=== PATIENT | male | born 1970 | race Caucasian/White ===

== ENCOUNTER → 2017-11-10 | Outpatient (CLI) | payer OTHER ==
[2017-11-10 09:32] LABS: Basophils % (A) 0 %; Eosinophils # (A) 0.1 k/uL (0-0.7); Eosinophils % (A) 1 %; HCT 43.4 % (39.0-53.0); HGB 14.8 gm/dL (13.0-17.5); Lymphocytes # (A) 1.2 k/uL (1.0-4.8); Lymphocytes % (A) 18 %; MCH 31.6 pg (25.0-35.0); MCHC 34.1 g/dL (31.0-37.0); MCV 92.7 fL (80.0-100.0); Mean Platelet Volume 6.8; Monocytes # (A) 0.5 k/uL (0-1.0); Monocytes % (A) 7 %; Neutrophils # (A) 4.5 k/uL (1.3-7.7); Neutrophils % (A) 71 %; Platelet Count 197 k/uL (150-450); RBC 4.68 m/uL (4.30-5.90); RDW 13.7 % (11.5-15.5); WBC 6.4 k/uL (3.8-10.6)
[2017-11-10 09:54] LABS: Anion Gap 9 mmol/L; Blood Urea Nitrogen 19 mg/dL (9-20); Calcium 9.8 mg/dL (8.4-10.2); Carbon Dioxide 30 mmol/L (22-30); Chloride 102 mmol/L (98-107); Cholesterol 159 mg/dL (<200); Glucose 100 mg/dL (74-99); HDL Cholesterol 56 mg/dL (40-60); LDL Cholesterol,Calculated 91 mg/dL (0-99); Sodium 141 mmol/L (137-145); Triglycerides 62 mg/dL (<150)
--- NOTE | 2017-11-10 10:38 | XR ---
EXAMINATION TYPE: XR cervical spine comp DATE OF EXAM: 11/10/2017 TECHNIQUE: Frontal, lateral, oblique, swimmers, and open mouth view of the cervical spine are obtaine d. HISTORY: L08.9,Z00.00 neck pain COMPARISON: None FINDINGS: The cervical spine is visualized in its entirety from C1 thru the top of T1 level, it is s atisfactory in alignment without evidence of acute fracture or dislocation. The pre-vertebral soft t issue appears within normal limits. The C1-C2 articulation is within normal limits on the open mouth view. There is mild degenerative change of the cervical spine with disc space narrowing at C6-C7 and mild multilevel uncovertebral hypertrophy. Oblique images demonstrate mild stenosis at C6-C7 on the left no significant radiographic neural foraminal narrowing on the right. IMPRESSION: 1. No acute fracture or dislocation is seen in the cervical spine. 2. Mild multilevel degenerative disc disease of the cervical spine most exaggerated at C6-C7 resultin g in mild radiographic left neural foraminal narrowing.
--- NOTE | 2017-11-10 10:58 | XR ---
EXAMINATION TYPE: XR hand complete bilateral, XR wrist complete BILATERAL DATE OF EXAM: 11/10/2017 CLINICAL HISTORY: Bilateral hand and wrist pain TECHNIQUE: Frontal, lateral and oblique images of the bilateral hands and wrists are obtained. Navic ular views were also obtained bilaterally. COMPARISON: None. FINDINGS: There is no acute fracture/dislocation evident in the either hand or wrist. The overlying soft tissue appears unremarkable. Osseous mineralization is within normal limits. No radiopaque foreign body. Well-corticated nonaggressive appearing 2 mm sclerotic focus is seen within the distal phalanx tuft o f the fourth digit on the left. This may relate to benign bone island. Small subchondral cyst is seen of the base of the middle phalanx of the fourth digit on the right at its radial aspect. No significant radiographic degenerative changes are seen within either hand or wr ist. IMPRESSION: 1. No acute fracture or dislocation in either hand or wrist. 2. Mild degenerative changes of the right fourth digit at the base of the middle phalanx. 3. No significant radiographic sequela of arthropathy.
== END | disposition home or self-care (01) ==
LOC: LABWHC1 09:12
PROVIDERS: ATTEND Nurse Practitioner Adult Health
DX: M99.71 Connective tissue and disc stenosis of intervertebral foramina of cervical region (principal); M50.323 Other cervical disc degeneration at C6-C7 level; L08.9 Local infection of the skin and subcutaneous tissue, unspecified; Z00.00 Encounter for general adult medical examination without abnormal findings; R93.7 Abnormal findings on diagnostic imaging of other parts of musculoskeletal system; R20.2 Paresthesia of skin; M79.643 Pain in unspecified hand
CPT/HCPCS: 36415; 72050; 80048; 80061; 85025

== ENCOUNTER → 2017-11-18 | Outpatient (CLI) | payer OTHER ==
[2017-11-18 14:52] LABS: Anion Gap 10 mmol/L; Blood Urea Nitrogen 22 mg/dL (9-20); Calcium 9.6 mg/dL (8.4-10.2); Carbon Dioxide 29 mmol/L (22-30); Chloride 103 mmol/L (98-107); Glucose 87 mg/dL (74-99); Magnesium 1.9 mg/dL (1.6-2.3); Potassium 4.8 mmol/L (3.5-5.1); Sodium 142 mmol/L (137-145)
== END | disposition home or self-care (01) ==
LOC: LABWHC1 14:24
PROVIDERS: ATTEND Nurse Practitioner Adult Health
DX: E87.5 Hyperkalemia (principal)
CPT/HCPCS: 36415; 80048; 83735

== ENCOUNTER 2020-03-25 07:03 | Day surgery (SDC) | payer OTHER ==
[2020-03-21 14:27] VITALS: BMI 26.5
[~2020-03-25 07:03] MED LIST: ACETAMINOPHEN TAB 500 MG TAB PO ONE; DEXAMETHASONE SOD PHOSPHATE 10 MG/ML 1 ML VIAL IV ONE; HEPARIN SODIUM,PORCINE 5,000 UNIT/ML 1 ML VIAL SQ ONE; HYDROmorphone 0.5 MG/0.5 ML SYRINGE IVP PRN; LACTATED RINGERS 1,000 ML IV SCH; MIDAZOLAM 2 MG/2 ML VIAL IV PRN; ONDANSETRON 4 MG/2 ML VIAL IVP ONE; Pre Op ABX Message 1 EACH MISC MISCELLANE ONE; SCOPOLAMINE 1.5MG/72HR PATCH TRANSDERM ONE
--- NOTE | 2020-03-25 08:44 | P.GSHP ---
History of Present Illness H&P Date: 03/25/20 Chief Complaint: Chronically inflamed skin left lower quadrant abdominal wall This a 49-year-old male who has a area of chronically inflamed skin left lower quadrant abdominal wall. Patient presents today for excision. Patient has had inflammation this area for several months. Past Medical History Past Medical History: GERD/Reflux Additional Past Medical History / Comment(s): HX OF ULCER OF SKIN ON ABDOMEN., BPH, SKIN LESION LEFT LOWER ABDOMEN. History of Any Multi-Drug Resistant Organisms: None Reported Past Surgical History: Tonsillectomy Past Anesthesia/Blood Transfusion Reactions: No Reported Reaction Past Psychological History: No Psychological Hx Reported Smoking Status: Current every day smoker Past Alcohol Use History: None Reported Additional Past Alcohol Use History / Comment(s): SMOKES 1 PPD, STARTED SMOKING AGE 19. Past Drug Use History: Marijuana, Opiates Additional Drug Use History / Comment(s): HX OF OPIATE ABUSE. - Past Family History Father Family Medical History: Coronary Artery Disease (CAD), Hypertension Medications and Allergies Home Medications Medication Instructions Recorded Confirmed Type Omeprazole 20 mg PO DAILY 01/10/18 03/25/20 History Tamsulosin HCl [Flomax] 0.4 mg PO HS 01/10/18 03/25/20 History Buprenorphine HCl/Naloxone HCl 1 each SL BID 03/21/20 03/25/20 History [Suboxone 8 mg-2 mg Sl Film] Ibuprofen [Motrin] 800 mg PO BID PRN 03/21/20 03/25/20 History Allergies Allergy/AdvReac Type Severity Reaction Status Date / Time No Known Allergies Allergy Verified 03/25/20 07:26 Surgical - Exam Vital Signs Temp Pulse Resp BP Pulse Ox 98.1 F 71 16 118/75 97 03/25/20 07:39 03/25/20 07:39 03/25/20 07:39 03/25/20 07:39 03/25/20 07:39 - General well developed, well nourished, no distress - Eyes PERRL - ENT normal pinna, normal nares - Neck no masses - Respiratory normal expansion - Cardiovascular Rhythm: regular - Abdomen Abdomen: soft, non tender - Integumentary 3 x 7 cm area of chronically inflamed skin left lower quadrant near patient's waist band. Assessment and Plan Assessment: Chronically inflamed skin. Patient will undergo excisional biopsy today.
[2020-03-25] MEDS ORDERED: LIDOCAINE 1%-EPI 1:100,000 20 ML VIAL SQ ONE (09:33)
--- NOTE | 2020-03-25 09:47 | P.OP ---
Date of Procedure: 03/25/20 Preoperative Diagnosis: Chronically inflamed skin Postoperative Diagnosis: Defer to pathology Procedure(s) Performed: Excision of chronically inflamed skin lesion Anesthesia: CARMEN Surgeon: Naseem Barnhart Estimated Blood Loss (ml): 10 Pathology: other (Skin) Condition: stable Disposition: PACU Description of Procedure: Patient's placed Table in the supine position. He received a LMA general endotracheal tube anesthesia. His left groin was prepped and draped usual fashion. Elliptical skin incision was made around the inflamed skin lesion. The lesion measured approximately 3 x 10 cm. Using cautery the subcutaneous tissue divided. He was essentially the Bovie. The skin was closed interrupted 3-0 Monocryl suture. Dermabond dressing applied. Patient top she will well and was sent to recovery room stable condition.
[2020-03-25 09:57] VITALS: TEMP 98
[2020-03-25 10:39] VITALS: RESP 18
[2020-03-25 10:55] VITALS: BP 135/76; PULSE 78
== END 2020-03-25 11:20 | disposition home or self-care (01) ==
LOC: OR 07:03
PROVIDERS: ATTEND Surgery
DX: L72.0 Epidermal cyst (principal); K21.9 Gastro-esophageal reflux disease without esophagitis; N40.0 Benign prostatic hyperplasia without lower urinary tract symptoms; Z98.890 Other specified postprocedural states; F17.210 Nicotine dependence, cigarettes, uncomplicated; F11.11 Opioid abuse, in remission; Z97.2 Presence of dental prosthetic device (complete) (partial); Z82.49 Family history of ischemic heart disease and other diseases of the circulatory system; Z79.899 Other long term (current) drug therapy
CPT/HCPCS: 88304; 22903; J1644; J1100; J0690; J2405